=== PATIENT | male | born 1955 | race Caucasian/White ===

== ENCOUNTER 2023-06-04 10:34 | Emergency (ER) | payer MEDICAID ==
[~2023-06-04] VITALS: Ht 165.1 cm; Wt 98.1 kg
[2023-06-04 10:45] VITALS: BP 165/75; PULSE 56; TEMP 98.3; O2SAT 96
--- NOTE | 2023-06-04 11:37 | NUR ---
Pt bib for back pain. Pt states he tripped forward onto his hands at [facility]. Pain is 10/10, constant, non radiating, ache. No abnormalities noted at back. Pt does not see an md regularly. Pt is a/o x 4, vss, no ss of acute distress, breathing equal and unlabored, speech clear, at bedside.
[2023-06-04] MEDS ORDERED: HYDROcodone/APAP 7.5/325 MG 1 TAB PO ONE (12:40)
--- NOTE | 2023-06-04 13:55 | NUR ---
Spoke to [facility] ABHIJEET Zhang and stated that pain reassessed at 1355 with pain decreased to 0/10.
[2023-06-04] MEDS ORDERED: CYCL-711 PO (13:57)
[2023-06-04] MEDS ORDERED: ACET-10509 PO (13:57)
[2023-06-04] MEDS ORDERED: LID5T TP (13:57)
[2023-06-04 14:05] VITALS: BP 111/68; PULSE 74; RESP 17; O2SAT 98
--- NOTE | 2023-06-04 14:05 | NUR ---
Patient discharged with v/s stable. Written and verbal after care instructions given and explained. Patient verbalized understanding. Ambulatory with steady gait. All questions addressed prior to discharge. Advised to follow up with PMD.
== END 2023-06-04 14:05 | disposition home or self-care (01) ==
LOC: MED 10:34
DX: M51.36 Other intervertebral disc degeneration, lumbar region (principal); R03.0 Elevated blood-pressure reading, without diagnosis of hypertension; Z79.899 Other long term (current) drug therapy
CPT/HCPCS: 72100; 81002; 99283

== ENCOUNTER 2023-08-17 10:50 | Emergency (ER) | payer MEDICAID ==
[~2023-08-17] VITALS: Ht 165.1 cm; Wt 94.3 kg
[~2023-08-17 10:50] MED LIST: ACET-10509 PO; CYCL-711 PO; LID5T TP
[2023-08-17 10:55] VITALS: BP 144/84; PULSE 50; RESP 16; TEMP 97.6; O2SAT 96
[2023-08-17 11:47] VITALS: O2SAT 96
[2023-08-17] MEDS ORDERED: TRAM-748 PO (13:12)
[2023-08-17 13:15] VITALS: BP 147/84; PULSE 50; RESP 16; TEMP 97.6
[2023-08-17 13:23] VITALS: O2SAT 96
== END 2023-08-17 13:15 | disposition home or self-care (01) ==
LOC: MED 10:50
DX: S00.83XA Contusion of other part of head, initial encounter (principal); S20.212A Contusion of left front wall of thorax, initial encounter; S00.31XA Abrasion of nose, initial encounter; H25.89 Other age-related cataract; Z79.899 Other long term (current) drug therapy; W22.8XXA Striking against or struck by other objects, initial encounter; Y93.02 Activity, running; Y92.89 Other specified places as the place of occurrence of the external cause; Y99.8 Other external cause status
CPT/HCPCS: 71045; 99283